=== PATIENT | male | born 1960 | race Caucasian/White ===

== ENCOUNTER 2019-08-03 20:45 | Inpatient (IN) ==
[2019-08-03 23:37] LABS: URINE SOURCE CLEAN CATCH
[2019-08-03 23:41] LABS: BASO# 0.03 X1000 (0.0-0.2); BASO% 0.2 % (0.0-0.8); EOS# 0.14 X1000 (0.0-0.7); EOS% 0.8 % (0.0-10.0); HEMATOCRIT 46.7 % (42.0-52.0); HEMOGLOBIN 15.7 g/dL (14.0-18.0); IMM GRAN# 0.04 X1000 (0.0-0.04); IMM GRAN% 0.2 % (0.0-0.5); LYMPH# 2.61 X1000 (1.2-3.4); LYMPH% 14.2 % (20.5-51.1); MCH 29.8 PG (27-31); MCHC 33.6 g/dL (33-37); MCV 88.6 FL (81-99); MONO# 1.89 X1000 (0.11-0.59); MONO% 10.3 % (1.7-9.3); MPV 10.3 FL (7.4-10.4); NEUT# 13.65 X1000 (1.4-6.5); NEUT% 74.3 % (42.2-75.2); PLT 358 X1000 (130-400); RBC 5.27 XMIL (4.7-6.1); RDW 13.1 % (11.5-14.5); WBC 18.36 X1000 (4.8-10.8)
[2019-08-03 23:43] LABS: BILIRUBIN URINE NEGATIVE (NEGATIVE); BLOOD URINE SMALL (NEGATIVE); COLOR YELLOW; GLUCOSE URINE NEGATIVE (NEGATIVE); KETONE URINE NEGATIVE (NEGATIVE); LEUKOCYTES URINE NEGATIVE (NEGATIVE); NITRITE URINE NEGATIVE (NEGATIVE); PROTEIN URINE NEGATIVE (NEGATIVE); SP GRAVITY URINE 1.016; TURBIDITY URINE CLEAR (CLEAR); UR EPITHELIAL CELLS <10 /HPF (<10); URINE BACTERIA NEGATIVE /HPF; URINE RBC <10 /HPF (<10); URINE WBC <10 /HPF (<10); UROBILINOGEN URINE NORMAL (NORMAL)
[2019-08-03 23:54] LABS: AGAP 15; ALB/GLOB RATIO 1.6; ALBUMIN 4.4 g/dL (3.5-5.0); ALKALINE PHOSPHATASE 60 U/L (32-122); AMYLASE 69 U/L (20-200); BUN 13 mg/dL (8-22); CALCIUM 9.4 mg/dL (8.8-10.2); CHLORIDE 103 mmol/L (98-107); COSMO 280; CREATININE 1.1 mg/dL (0.7-1.2); ESTIMATED GFR > 60; GLUCOSE 108 mg/dL (70-104); GOT 17 U/L (10-34); GPT 18 U/L (10-44); LIPASE 66 U/L (13-60); POTASSIUM 3.8 mmol/L (3.5-5.1); SODIUM 140 mmol/L (136-145); TCO2 22 mmol/L (25-35); TOTAL BILIRUBIN 0.47 mg/dL (0.20-1.00); TOTAL PROTEIN 7.2 g/dL (6.3-8.3)
[2019-08-04] MEDS ORDERED: BENTYL PO ONE (00:29)
[2019-08-04] MEDS ORDERED: ZOFRAN IV ONE (00:29)
--- NOTE | 2019-08-04 00:43 | PROVIDER DOCUMENTATION ---
HPI-Abdominal Pain/GI Problem - General Chief Complaint: Abdominal Pain Stated Complaint: STOMACH PAIN FEVER Time Seen by Provider: 08/04/19 00:08 Source: patient Allergies/Adverse Reactions: Patient Allergies Allergy/AdvReac Type Severity Reaction Status Date / Time No Known Allergies Allergy Verified 08/26/14 17:24 Home Medications: Home Medication List Medication Instructions Recorded Confirmed Last Taken Type NK [No Home Medications] 08/04/19 08/04/19 Unknown History - History of Present Illness-ABD Nature of Presenting Problems: 59 yr old M, no significant PMHx, presenting with a several hour hx of lower abdominal cramping pain. The pt states these symptoms started somewhat abruptly earlier on the morning of 08/03/2019. He describes it as cramping, clenching, comes and goes in episodic frequency. No vomiting, some mild nausea, he was able to eat dinner and kept it down. He denies fevers, but felt chills earlier. No recent abdominal surgeries; he still has his appendix, gallbladder. He denies di fficulty with bowel movements or urination. Abdominal Pain Onset Location: reports: other (lower abdomen) Quality of Pain: reports: cramping Severity in ED: reports: moderate Onset/Duration: reports: 4-6 hours ago Timing: reports: intermittent Activities at Onset: reports: none Exposure to sick contacts?: No Modifying Factors: improves with: nothing Associated Symptoms: reports: nausea. denies: vomiting Last BM: this afternoon Dark Stools Present?: reports: none noticed Rectal Bleeding: reports: none # of Diarrhea Episodes: 0 # of Vomiting Episodes: 0 Similar Symptoms Previously?: No Review of Systems - Adult - REVIEW OF SYSTEMS - ADULT Constitutional: reports: no symptoms reported Eyes: reports: no symptoms reported Ears, Nose, Mouth & Throat: reports: no symptoms reported Cardiovascular: reports: no symptoms reported Respiratory: reports: no symptoms reported Gastrointestinal: reports: abdominal pain, nausea Genitourinary: reports: no symptoms reported Musculoskeletal: reports: no symptoms reported Integumentary: reports: no symptoms reported Neurological: reports: no symptoms reported Psychiatric: reports: no symptoms reported Endocrine: reports: no symptoms reported Past History - Adult - PAST MEDICAL HISTORY-ADULT Review of Records: reports: Nursing Assessment Review Major Childhood Illnesses: reports: denies history Cardiovascular: reports: denies history Respiratory: reports: denies history Gastrointestinal: reports: denies history Musculoskeletal: reports: denies history Neurological: reports: denies history Psychiatric: reports: denies history Endocrine/Immune: reports: denies history Other Conditions: reports: denies history - PRIOR SURGERIES/PROCEDURES Surgical/Procedure History: reports: reviewed, not pertinent - IMMUNIZATION STATUS Childhood Immunizations: See Nurse Assessment Flu Vaccine: See Nurse Assessment - FAMILY HISTORY Family History: reviewed, not pertinent - SOCIAL HISTORY Smoking: denies Substance Use: denies, marijuana (occasional) Living Situation: family Physical Exam-General - CONSTITUTIONAL General Appearance: alert, no apparent distress - EYES Eyes: PERRL/EOMI - HEAD, EARS, NOSE, MOUTH & THROAT HENMT: normocephalic/atraumatic, moist mucous membranes - RESPIRATORY Respiratory: chest non-tender, lungs clear, normal breath sounds - CARDIOVASCULAR Cardiovascular: normal peripheral pulses, regular rate, rhythm - GASTROINTESTINAL (ABDOMEN) Abdominal Exam: other (bowel sounds hyperactive, tenderness to palpation of the lower abdomen, soft; pain appears to be intermittent; when the exam first began, the pt was comfortable, but he experienced a sudden onset of cramping correction through) - SKIN Integumentary: warm/dry - PSYCHIATRIC Psych/Mental Status: normal mood/affect, oriented x 3 Progress - PLAN OF CARE/RESULTS Progress/Plan/Lab Results: Vital Signs - 8 hr 08/03/19 20:52 Temperature 98.1 F Pulse Rate 104 H Respiratory Rate 16 Blood Pressure 158/102 O2 Sat by Pulse Oximetry 95 Laboratory Results - last 24 hr 08/03/19 08/03/19 08/03/19 21:12 21:12 21:12 WBC 18.36 H RBC 5.27 Hgb 15.7 Hct 46.7 MCV 88.6 MCH 29.8 MCHC 33.6 RDW Std Deviation 13.1 Plt Count 358 MPV 10.3 Immature Gran % (Auto) 0.2 Neut % (Auto) 74.3 Lymph % (Auto) 14.2 L [place] % (Auto) 10.3 H Eos % (Auto) 0.8 Baso % (Auto) 0.2 Immature Gran # (Auto) 0.04 Neut # (Auto) 13.65 H Lymph # (Auto) 2.61 [place] # (Auto) 1.89 H Eos # (Auto) 0.14 Baso # (Auto) 0.03 Sodium 140 Potassium 3.8 Chloride 103 Carbon Dioxide 22 L Anion Gap 15 BUN 13 Creatinine 1.1 Estimated GFR/1.73 m2 > 60 BUN/Creatinine Ratio 12 Glucose 108 H Calculated Osmolality 280 Calcium 9.4 Total Bilirubin 0.47 AST 17 ALT 18 Alkaline Phosphatase 60 Total Protein 7.2 Albumin 4.4 Globulin 2.8 Albumin/Globulin Ratio 1.6 Amylase 69 Lipase 66 H Urine Source CLEAN CATCH Urine Color YELLOW Urine Turbidity CLEAR Urine pH 6.0 Ur Specific [place] 1.016 Urine Protein NEGATIVE Ur Glucose (Stick) NEGATIVE Ur Ketones (Stick) NEGATIVE Urine Blood SMALL A Urine Nitrite NEGATIVE Urine Bilirubin NEGATIVE Urobilinogen Dipstick NORMAL Urine Leukocytes NEGATIVE Urine WBC (Auto) <10 Urine RBC (Auto) <10 U Epithel Cells (Auto) <10 Urine Bacteria (Auto) NEGATIVE Orders Category Date Time Status Saline Loc DIRECTED Care 08/03/19 20:59 Active NPO Diet 08/03/19 20:[address] ABD/PELVIS W/IV CONT ONLY [CT] Stat Exams 08/04/19 00:30 Ordered AMYLASE [CHEM] Stat Lab 08/03/19 21:12 Completed CBC WITH ELECTRONIC DIFF [HEME] Stat Lab 08/03/19 21:12 Completed COMPREHENSIVE METABOLIC PANEL [CHEM] Stat Lab 08/03/19 21:12 Completed INFLUENZA SCREEN A/B Stat Lab 08/04/19 00:05 Ordered LIPASE [CHEM] Stat Lab 08/03/19 21:12 Completed URINALYSIS W/POSS RFLX CULT [URINALYSIS] Stat Lab 08/03/19 21:12 Completed Dicyclomine [Bentyl] Med 08/04/19 00:29 Discontinued 20 mg PO NOW ONE Ondansetron [Zofran] Med 08/04/19 00:29 Discontinued 8 mg IV NOW ONE Pt has elevated WBC of 18K, CT shows diverticulitis, spoke with Dr. Garcia who agrees to accept the patient for further monitoring. Result Diagrams: 08/03/19 21:12 08/03/19 21:12 - CT/MRI 1 CT Study: Abdomen, Pelvis Impression: See EMR Report CT Results: acute sigmoid diverticulitis - CONSULTS/PCP/HOSPITALIST Notification #1 *Consult/PCP/Hospitalist*: Dr. Garcia Time Discussed: 02:00 Consult Disposition: Admit Departure - Departure Date of Disposition Decision: 08/04/19 Time of Disposition Decision: 01:59 DIAGNOSIS: Diverticulitis Disposition: ADMITTED INPATIENT 09 Certified Medical Emergency: Emergent Condition: Fair Referrals and Follow-Ups: Haven Marcus [Primary Care Provider] - - Critical Care Note This patient required my direct & personal management of CC.: No Attestation - Physician/ NIKI Attestation Patient care was provided by Advanced Practice Provider:: No The physician spent face to face time with patient:: Yes Advanced Practice Provider documentation review:: Supervising physician onsite and consulted in the evaluation and care of this patient. The physician did have a face to face encounter with the patient.
[2019-08-04] MEDS ORDERED: NS 1,000 ML IV ONE (02:01)
[2019-08-04] MEDS ORDERED: ZOSYN 3.375 GM in NS 50 ML IV ONE (02:01)
--- NOTE | 2019-08-04 07:25 | Diag Imaging Result Doc PS360 ---
EXAM: CT ABD/PELVIS W/IV CONT ONLY 08/04/2019 HISTORY: abdominal pain TECHNIQUE: This exam was performed using automated exposure control, adjustment of mA or kV according to patient size, and/or use of iterative reconstruction technique. COMMENT: There are no previous studies available for comparison. There is platelike opacity in both lower lobes particularly the left lower lobe which may be due to atelectasis. There is a calcified node in the lower right hilum. There are granulomata in the spleen and liver. There are cholesterol stones in the gallbladder measuring up to 2 cm in size. There is no evidence of hydronephrosis. There is apparent nephrocalcinosis in the left kidney with a calcified nodule measuring almost 9 mm in diameter as well as several cortical cysts. The aorta is not distended although there are some calcifications. The mesenteric and renal arteries are patent. There is a tiny cyst on image 28 of the portal venous series in the right hepatic lobe. Otherwise the liver is unremarkable. The adrenal glands are not enlarged. There is a splenule near the spleen. The pancreas is unremarkable. There is some stool throughout the colon. There is no evidence of bowel obstruction or significant adenopathy. The appendix is normal in appearance. There is a fat-containing umbilical hernia. Pelvis: There is infiltration of the fat around the proximal sigmoid colon with particular inflammation around some of the posterior lateral diverticula. No discrete abscess is identified. There is no evidence of free fluid. The urinary bladder is not distended. The prostate is somewhat enlarged measuring 5.2 x 4.4 cm axially. There are some degenerative disc changes particularly at L4-5. No acute bony abnormalities are present. IMPRESSION: Proximal sigmoid diverticulitis. Cholelithiasis. Other nonacute findings as described above. Electronically signed by Roel Goldsmith 08/04/2019 7:23 AM
[2019-08-04] MEDS ORDERED: ZOFRAN IV PRN (09:52)
[2019-08-04] MEDS ORDERED: TYLENOL PO PRN (09:52)
--- NOTE | 2019-08-04 10:20 | HISTORY AND PHYSICAL ---
PRIMARY CARE PHYSICIAN: Dr. Haven Marcus. CHIEF COMPLAINT: Abdominal pain x1 day. HISTORY OF PRESENTING ILLNESS: A 59-year-old male without any significant past medical history presented to emergency department with 1-day history of having abdominal cramping. The patient states that he was somewhat nauseated and did not feel well. The patient was evaluated the emergency department. He had imaging done which did show diverticulitis and, due to his presenting symptoms, he required admission for further management. At the time of my examination, he had denied any headache, fever, chills, chest pain, shortness of breath, hemoptysis, melena, weight changes, but complained of abdominal cramping. PAST MEDICAL HISTORY: None. PAST SURGICAL HISTORY: Vasectomy and tonsillectomy. ALLERGIES: No known drug allergies. CURRENT MEDICATIONS: None. SOCIAL HISTORY: No history of smoking. Admits to social alcohol use. Denies any illicit drug use. FAMILY HISTORY: No history of coronary artery disease. REVIEW OF SYSTEMS: Fourteen point review of systems is as in HPI. Other systems negative. PHYSICAL EXAMINATION: GENERAL: Cooperative, friendly male. He is resting comfortably now. VITAL SIGNS: Temperature 98.3 degrees, pulse 92, respiration 18, blood pressure 162/92. HEENT: Atraumatic, normocephalic. Extraocular movements intact. PERRLA. NECK: No masses. CHEST: Clear to auscultation. CARDIOVASCULAR: Regular rate and rhythm. S1, S2. ABDOMEN: Soft, diffuse tenderness. EXTREMITIES: No edema. NEUROLOGIC: He is awake, alert, oriented x3. : No bladder distention. SKIN: Warm. LABORATORIES AND STUDIES: WBCs 18.36, hemoglobin 15.7, hematocrit 46.7, platelets 358,000. Sodium 140, potassium 3.8, chloride 103, CO2 22, BUN is 13, creatinine is 1.1, glucose 108. ASSESSMENT: This is a 59-year-old male without any significant past medical history who presented to emergency department with 1-day history of abdominal cramping. The patient was evaluated in the emergency department. He had imaging done which did show diverticulitis. Subsequently he will require admission for management. ASSESSMENT: Acute diverticulitis. PLAN: 1. We will admit patient to medical floor with telemetry. 2. We will keep patient NPO. Continue with IV fluids, antiemetics, pain control. 3. We will start patient on Zosyn. 4. We will put patient on DVT prophylaxis with SCD. 5. We will continue to follow and reassess and make further recommendations based on patient's clinical course. cc: Lucio Garcia MD
[2019-08-04] MEDS: NS 1,000 ML IV SCH ×2 (11:18→21:05)
[2019-08-04] MEDS: ZOSYN 3.375 GM in NS 50 ML IV SCH ×3 (11:19→21:05)
[2019-08-04] MEDS ORDERED: MORPHINE IV PRN (12:02)
--- NOTE | 2019-08-04 14:50 | Diag Imaging Result Doc PS360 ---
EXAM: US GB < RUQ (LIMITED) 08/04/2019 HISTORY: cholelithiasis r/o cholecystitis TECHNIQUE: Right upper quadrant ultrasound COMMENT: The visualized portions of the aorta and inferior vena cava are within normal limits. The visualized portions of the pancreas are within normal limits. There is a stone in the neck of the gallbladder measuring over 2.8 cm in diameter and there are multiple additional stones. The gallbladder wall is not particularly thickened and there is no evidence of para cholecystic fluid or a Jung sign. There is no evidence of biliary dilatation the common bile duct measuring 3 mm. There is antegrade flow in the portal vein. The liver is slightly hyperechoic particularly the right hepatic lobe. The right kidney is slightly hyperechoic. There are no previous ultrasound studies available for comparison. IMPRESSION: Cholelithiasis without evidence of cholecystitis. The possibility of medical renal disease cannot be excluded. Mild hepatic steatosis. Electronically signed by Roel Goldsmith 08/04/2019 2:47 PM
--- NOTE | 2019-08-04 14:51 | PROGRESS NOTE ---
DATE: 08/04/2019 SUBJECTIVE: This morning, Mr. Beach refers to be doing a little better. Still has a lot of pain in the lower abdomen, and was slightly nauseated early on. He still does not want to even try eating anything because of extreme pain. OBJECTIVE: Vital Signs: Blood pressure is 156/99, pulse of 100, respirations 20, temperature is 98.1 degrees. General: Mr. Beach is a 59-year-old gentleman. He was in bed. No distress. HEENT: Mucosa is pink and moist. Anicteric. Acyanotic. Neck: Supple. Chest: Good air entry bilaterally. There were no crepitations, no rhonchi. Cardiovascular: Regular rate and rhythm. No murmurs, no rubs, no gallops. Abdomen: Soft. Remarkably tender in the lower abdomen. Minimal guarding, but no rebound. [employer]: The patient is awake, alert, oriented. There is no focal neurological deficit. IMAGING AND LABORATORY DATA: Laboratory data from yesterday has been evaluated. WBC is elevated. Platelet and hemoglobin are normal. Flu screening was negative. A CT scan, which was done early on this morning, shows proximal sigmoid diverticulitis. There is also cholelithiasis. ASSESSMENT: 1. Lower abdominal pain secondary to acute proximal sigmoid diverticulitis. Will continue with intravenous antibiotics and pain control. The patient is currently nothing by mouth. 2. Intractable nausea and vomiting secondary to diverticulitis. 3. Cholelithiasis on CT scan. Will get an ultrasound to rule out any acute inflammation of the gallbladder either. PLAN: For now, we are going to continue with the IV fluids, n.p.o., pain control, antibiotics. I have advised Mr. Beach to eventually follow up with GI a couple of weeks after the treatment since he has never had any colonoscopy before. cc: Paul Gregory MD
[2019-08-04 15:12] LABS: BASO# 0.03 X1000 (0.0-0.2); BASO% 0.2 % (0.0-0.8); EOS# 0.05 X1000 (0.0-0.7); EOS% 0.3 % (0.0-10.0); HEMATOCRIT 44.4 % (42.0-52.0); HEMOGLOBIN 14.9 g/dL (14.0-18.0); IMM GRAN# 0.02 X1000 (0.0-0.04); IMM GRAN% 0.1 % (0.0-0.5); LYMPH# 2.59 X1000 (1.2-3.4); LYMPH% 17.6 % (20.5-51.1); MCH 29.9 PG (27-31); MCHC 33.6 g/dL (33-37); MCV 89.2 FL (81-99); MONO# 1.66 X1000 (0.11-0.59); MONO% 11.3 % (1.7-9.3); MPV 9.4 FL (7.4-10.4); NEUT# 10.33 X1000 (1.4-6.5); NEUT% 70.5 % (42.2-75.2); PLT 303 X1000 (130-400); RBC 4.98 XMIL (4.7-6.1); RDW 13.2 % (11.5-14.5); WBC 14.68 X1000 (4.8-10.8)
[2019-08-04] MEDS: BENTYL IM SCH ×2 (15:30→21:06)
[2019-08-04 15:31] LABS: AGAP 10; BUN 9 mg/dL (8-22); CALCIUM 8.9 mg/dL (8.8-10.2); CHLORIDE 103 mmol/L (98-107); COSMO 275; ESTIMATED GFR > 60; GLUCOSE 102 mg/dL (70-104); POTASSIUM 3.8 mmol/L (3.5-5.1); SODIUM 138 mmol/L (136-145); TCO2 25 mmol/L (25-35)
[2019-08-04] MEDS: PRINIVIL PO SCH (17:29)
[2019-08-05] MEDS: ZOSYN 3.375 GM in NS 50 ML IV SCH ×2 (03:34→10:37)
[2019-08-05] MEDS: NS 1,000 ML IV SCH (07:06)
[2019-08-05] MEDS: PRINIVIL PO SCH (08:03)
[2019-08-05 08:37] VITALS: BP 156/86
[2019-08-05] MEDS: BENTYL IM SCH (10:36)
[2019-08-05] MEDS ORDERED: FLU VACCINE IM ONE (12:19)
--- NOTE | 2019-08-06 19:02 | DISCHARGE SUMMARY ---
ADMISSION DATE: 08/03/2019 DISCHARGE DATE: 08/05/2019 DISPOSITION: Home. FOLLOWUP: 1. Ms. Haven Marcus. 2. Dr. Granados. 3. Dr. Elkins. CONSULTATION DURING THIS ADMISSION: None. IMAGING STUDIES OF SIGNIFICANCE: 1. A CT scan of the abdomen did show proximal sigmoid diverticulitis, cholelithiasis. 2. Ultrasound of the abdomen showed cholelithiasis without evidence of cholecystitis. ADMISSION DIAGNOSIS: Acute diverticulitis. DIAGNOSIS AT THE TIME OF DISCHARGE: 1. Lower abdominal pain, secondary to acute proximal sigmoid diverticulitis. 2. Intractable nausea and vomiting, secondary to diverticulitis. 3. Cholelithiasis without evidence of cholecystitis. Patient will follow up with Dr. Granados. 4. Hypertension. DISCHARGE MEDICATIONS: 1. Metronidazole 250 p.o. 3 times per day. 2. Lisinopril 5 mg p.o. daily. 3. Bentyl 10 mg p.o. 4 times per day. 4. Ciprofloxacin 500 p.o. b.i.d. 5. Tramadol 50 mg p.o. q.6 hourly p.r.n. PRESENTING COMPLAINT: Abdominal pain. HISTORY OF PRESENTING COMPLAINT: Mr. Beach is a 59-year-old gentleman who presented to the emergency department because of acute onset of abdominal pain associated with some nausea and vomiting. He was evaluated and a CAT scan was done which revealed a proximal sigmoid diverticulitis. He was subsequently admitted for medical care. HOSPITAL COURSE: Mr. Beach was initially kept n.p.o. because of nausea and vomiting. Was started on broad-spectrum IV antibiotics and adequate IV fluids. Over the course of the short hospital stay, he got significantly improved. Abdominal pain subsided. He was started on a GI soft diet which he has tolerated, so we think he is stable to be transitioned to oral medications and follow up outpatient. Mr. Beach is advised to follow up with Dr. Elkins to evaluate after the end of his antimicrobial therapy for possible colonoscopy. During his workup, his imaging studies also revealed cholelithiasis. However, he is currently asymptomatic from that standpoint. He has been advised to follow up with Dr. Granados for outpatient gallbladder removal evaluation. This afternoon, Mr. Beach refers to be doing well. He has tolerated his diet. We think he is okay for discharge. His current vitals are blood pressure 156/86, pulse of 88, respiration of 19, and temperature is 98.5 degrees. Diverticular disease diet has also been discussed with Mr. Beach. All the discharge instructions discussed and he voiced understanding. TIME SPENT FOR DISCHARGE: 35 minutes. cc: MD Haven Thompson MD Michael Kelso, MD
== END 2019-08-05 15:15 | disposition home or self-care (01) | DRG 392 ==
LOC: ED 20:45 → SUATTDRO 20:46 → EDIPHOLD 20:46 → 3N 08-04 10:44
PROVIDERS: ATTEND Internal Medicine